=== PATIENT | female | born 1975 | race Caucasian/White ===

== ENCOUNTER 2021-11-02 04:08 | Inpatient (IN) | payer OTHER ==
[~2021-11-02] VITALS: Ht 160 cm; Wt 75.3 kg
[~2021-11-02 04:08] MED LIST: ASPIRIN EC81 MG PO; BRILINTA 90 MG90 MG PO; BRILINTA90 MG PO; COZAAR 50MG TAB50 MG PO; CRESTOR 10 MG T10 MG PO; HUMALOG 10100 UNITS/ SC; LANTUS INS100 UTS/M1 SQ; LOPRESSOR 25 MG25 MG PO; NITROGLYCERIN0.4 MG SL; OMNICEF 300 MG300 MG PO; PANTOPRAZOLE SO40 MG PO; PLAVIX75 MG PO; VALACYCLOVIR1000 MG PO
[2021-11-02] MEDS ORDERED: ACYCLOVIR30 GM TOP (10:57)
[2021-11-02] MEDS ORDERED: METFORMIN HCL1000 MG PO (11:03)
[2021-11-02] MEDS ORDERED: ASPIRIN EC325 MG PO ×2 (11:06→11:08)
[2021-11-02] MEDS ORDERED: EXCEDRIN MIGRA1 EACH PO (11:11)
[2021-11-02] MEDS ORDERED: ADVIL200 MG PO (11:15)
[2021-11-02 13:54] LABS: HEMOGLOBIN 12.5 gm/dl (12.3-15.3); RED BLOOD COUNT 3.85 M/UL (4.00-5.10); WHITE BLOOD COUNT 18.6 K/UL (4.5-11.0)
[2021-11-02 14:15] LABS: BUN/CREATININE RATIO 17 (0-10)
[2021-11-03 04:57] LABS: HEMOGLOBIN 13.3 gm/dl (12.3-15.3); RED BLOOD COUNT 4.17 M/UL (4.00-5.10); WHITE BLOOD COUNT 17.3 K/UL (4.5-11.0)
[2021-11-03 05:39] LABS: BUN/CREATININE RATIO 14 (0-10)
[2021-11-04 03:00] LABS: HEMOGLOBIN 13.6 gm/dl (12.3-15.3); RED BLOOD COUNT 4.23 M/UL (4.00-5.10); WHITE BLOOD COUNT 15.7 K/UL (4.5-11.0)
[2021-11-04 04:08] LABS: BUN/CREATININE RATIO 20 (0-10)
[2021-11-04] MEDS ORDERED: DOXYCYCLINE HY100 M2 PO (12:54)
[2021-11-04] MEDS ORDERED: ATORVASTATIN CA20 MG PO (12:55)
[2021-11-04] MEDS ORDERED: LOPRESSOR 50 MG50 MG PO (12:55)
[2021-11-04] MEDS ORDERED: PROTONIX 40 MG40 M1 PO (12:55)
[2021-11-04] MEDS ORDERED: BRILINTA 90 MG90 MG PO (12:55)
[2021-11-04] MEDS ORDERED: ASPIRIN EC81 MG PO (12:55)
[2021-11-04] MEDS ORDERED: LANTUS SOL100 UNIT/1 SQ (13:03)
[2021-11-05 22:07] LABS: CHLAMYDIA TRACHOMATIS, NAA Negative (Negative); NEISSERIA GONORRHOEAE, NAA Negative (Negative)
== END 2021-11-04 15:01 | disposition home or self-care (01) | DRG 247 ==
LOC: CDU 04:08 → CCU 04:08 → PROG CARE 11-03 12:22
PROVIDERS: Internal Medicine; ADMIT Internal Medicine Interventional Cardiology
PROC: 027034Z Dilation of Coronary Artery, One Artery with Drug-eluting Intraluminal Device, Percutaneous Approach (ICD-10-PCS; 2021-11-02)
PROC: 02703ZZ Dilation of Coronary Artery, One Artery, Percutaneous Approach (ICD-10-PCS; 2021-11-02)
PROC: 4A023N7 Measurement of Cardiac Sampling and Pressure, Left Heart, Percutaneous Approach (ICD-10-PCS; 2021-11-02)
PROC: B2111ZZ Fluoroscopy of Multiple Coronary Arteries using Low Osmolar Contrast (ICD-10-PCS; 2021-11-02)
PROC: B24BZZZ Ultrasonography of Heart with Aorta (ICD-10-PCS; 2021-11-02)
PROC: 3E03329 Introduction of Other Anti-infective into Peripheral Vein, Percutaneous Approach (ICD-10-PCS; principal; 2021-11-03)
DX: I21.09 ST elevation (STEMI) myocardial infarction involving other coronary artery of anterior wall (principal); N39.0 Urinary tract infection, site not specified; I10 Essential (primary) hypertension; E78.5 Hyperlipidemia, unspecified; F17.210 Nicotine dependence, cigarettes, uncomplicated; Z20.822 Contact with and (suspected) exposure to COVID-19; K21.9 Gastro-esophageal reflux disease without esophagitis; E66.9 Obesity, unspecified; E11.65 Type 2 diabetes mellitus with hyperglycemia; A60.00 Herpesviral infection of urogenital system, unspecified; Z79.899 Other long term (current) drug therapy; Z79.82 Long term (current) use of aspirin; Z82.49 Family history of ischemic heart disease and other diseases of the circulatory system; Z95.1 Presence of aortocoronary bypass graft; Z79.4 Long term (current) use of insulin; Z71.6 Tobacco abuse counseling; Z68.29 Body mass index [BMI] 29.0-29.9, adult; I25.2 Old myocardial infarction
CPT/HCPCS: ECHO; 36415; 71046; 80048; 80053; 80061; 81001; 82550; 82553; 82962; 83036; 84484; 85025; 85027; 85347; 93005; 93306; 97161; 99152; 99153; C1725; C1769; C1874; C1887; C1894; C9600; J0461; J0583; J0696; J1644; J2250; J2270; J3010; J3246; J7030; J7040; Q9965; U0002